=== PATIENT | female | born 1975 | race American Indian/Alaskan Native ===

== ENCOUNTER 2020-11-03 10:54 | Observation (INO) | payer SELFPAY ==
[~2020-11-03] VITALS: Ht 167.6 cm; Wt 100.8 kg
[2020-11-03 11:41] LABS: ALANINE AMINOTRANSFERASE 36 U/L (4-34); ALBUMIN 4.9 gm/dL (3.5-5.0); ALKALINE PHOSPHATASE 84 U/L (50-136); ANION GAP 11 mmol/L (7-16); AST,SGOT 28 U/L (15-37); BILIRUBIN,TOTAL 0.4 mg/dL (0.0-1.0); BLOOD UREA NITROGEN 10 mg/dL (7-17); CALCIUM 9.2 mg/dL (8.4-10.2); CARBON DIOXIDE 24 mmol/L (22-30); CHLORIDE 101 mmol/L (98-107); CREATININE, serum 0.65 (0.52-1.25); GLUCOSE 155 mg/dL (74-106); LIPASE 55 U/L (23-300); POTASSIUM 3.9 mmol/L (3.4-5.0); SODIUM 136 mmol/L (137-145); TOTAL PROTEIN 8.3 gm/dL (6.4-8.2)
[2020-11-03 11:46] LABS: BASO % 0.3 % (0.0-2.0); EOS % 0.1 % (0-4.0); GRAN # 11.8 (1.4-6.5); GRAN % 88.3 % (42.2-75.2); HEMATOCRIT 44.9 % (37.0-47.0); LYMPH # 1.1 (1.2-3.4); LYMPH % 8.2 % (20.0-51.0); MEAN CELL VOLUME 83 fl (80.0-100.0); MEAN CORPUSCULAR HEMOGLOBIN 28 pg (27.0-31.0); MEAN CORPUSCULAR HGB CONC 33 g/dl (33.0-37.0); MEAN PLATELET VOLUME 9.1 fl (7.4-10.4); MONO # 0.4 (0.1-0.6); MONO % 2.7 % (1.7-9.3); PLATELET COUNT 356 K/mm3 (130-400); REDCELL DISTRIBUTION WIDTH-CV 13.8 % (11.5-14.5)
[2020-11-03 11:56] LABS: TROPONIN-I < 0.012 ng/mL (0.000-0.035)
[2020-11-03 18:10] VITALS: BP 143/83; PULSE 111; TEMP 98.3
--- NOTE | 2020-11-03 18:11 | NUR ---
1807 PT BROUGHT UP FROM ER VIA WHEEL CHAIR AT THIS TIME. PT AMBULATED TO BED INDEPENDENTLY. COMPLAINTS OF PAIN IN ABDOMEN, BUT TOLERABLE AT THIS TIME. PATIENT ORIENTED TO ROOM AND CALL LIGHT AT BEDSIDE. VITALS TAKEN. PT REQUESTS TO USE BATHROOM.
[2020-11-03 19:30] VITALS: BP 134/81; PULSE 99; TEMP 98.4
[2020-11-03 23:30] VITALS: BP 139/71; PULSE 91
[2020-11-04] VITALS (12 sets, daily range): BP systolic 107–145; BP diastolic 66–88; PULSE 89–97; TEMP 98–99.1
[2020-11-04 06:11] LABS: BASO % 0.3 % (0.0-2.0); EOS # 0.1 (0.0-0.7); EOS % 0.5 % (0-4.0); GRAN # 8.7 (1.4-6.5); GRAN % 78.8 % (42.2-75.2); HEMATOCRIT 40.8 % (37.0-47.0); HEMOGLOBIN 13.5 g/dl (12.5-16.0); LYMPH # 1.4 (1.2-3.4); MEAN CELL VOLUME 81 fl (80.0-100.0); MEAN CORPUSCULAR HEMOGLOBIN 27 pg (27.0-31.0); MEAN CORPUSCULAR HGB CONC 33 g/dl (33.0-37.0); MEAN PLATELET VOLUME 8.6 fl (7.4-10.4); MONO # 0.8 (0.1-0.6); MONO % 7.1 % (1.7-9.3); PLATELET COUNT 265 K/mm3 (130-400); RED BLOOD COUNT 5.02 M/mm3 (4.10-5.30); REDCELL DISTRIBUTION WIDTH-CV 13.7 % (11.5-14.5)
[2020-11-04 06:22] LABS: ALBUMIN 3.8 gm/dL (3.5-5.0); BILIRUBIN,TOTAL 0.5 mg/dL (0.0-1.0); CALCIUM 8.2 mg/dL (8.4-10.2); CREATININE, serum 0.65 (0.52-1.25); POTASSIUM 4.2 mmol/L (3.4-5.0); TOTAL PROTEIN 6.9 gm/dL (6.4-8.2)
--- NOTE | 2020-11-04 17:30 | NUR ---
[id number]- Brigette [employer] TE[employer] at bedside. Pt to OR via bed at this time.
--- NOTE | 2020-11-04 20:42 | NUR ---
1940 PT RECEIVED VIA BED TO RM 222 ACCOMPANIED BY PACU NURSE, VITAL SIGNS STABLE AND DRESSINGS C/D/I X4. PT ALERT AND ORIENTED, DENIES N/V OR PAIN.
[2020-11-05] VITALS: BP 110/68; PULSE 92; TEMP 98.2
--- NOTE | 2020-11-05 00:05 | NUR ---
PT RESTING, DENIES PAIN, PT ATE SANDWICh, applesauce and drink water and apple juice. denies n/v. denies needs at this time.
[2020-11-05 04:00] VITALS: BP 97/47; PULSE 92; TEMP 98.4
[2020-11-05 07:05] VITALS: BP 123/57; PULSE 94; TEMP 98.6
[2020-11-05 11:18] VITALS: BP 103/63; PULSE 88; TEMP 98.4
[2020-11-05] MEDS ORDERED: NORCO 325 MG-51 TAB PO (13:49)
--- NOTE | 2020-11-05 14:45 | NUR ---
Patient given discharge instructions.Denies questions. Escorted off unit via wheelchair.
== END 2020-11-05 14:45 | disposition home or self-care (01) ==
LOC: COL.ER 10:54 → MEDICAL 12:36 → OB 12:37
PROVIDERS: Emergency Medicine; ADMIT Surgery
DX: K80.00 Calculus of gallbladder with acute cholecystitis without obstruction (principal); Z88.0 Allergy status to penicillin; M19.90 Unspecified osteoarthritis, unspecified site
CPT/HCPCS: G0378; J1170; J1885; J1956; J2405; J2704; J3010; J3480; J7030; J7120